=== PATIENT | male | born 1970 | race Caucasian/White ===

== ENCOUNTER → 2017-04-08 | Outpatient (CLI) | payer BC | END | disposition home or self-care (01) | LOC: C.RDSM 10:26 | PROVIDERS: ATTEND Orthopaedic Surgery Sports Medicine | DX: S49.92XA Unspecified injury of left shoulder and upper arm, initial encounter (principal); X58.XXXA Exposure to other specified factors, initial encounter ==

== ENCOUNTER → 2017-08-13 | Outpatient (CLI) | payer BC ==
[~2017-08-13] MED LIST: GADAVIST IV PRN
--- NOTE | 2017-08-13 11:51 | DIAGNOSTIC IMAGING REPORT ---
LEFT SHOULDER INJECTION UNDER FLUOROSCOPIC GUIDANCE CLINICAL HISTORY: Left shoulder pain. Injection for MR arthrogram. PROCEDURE: The risks, benefits, and alternatives to the procedure were discussed with the patient. Written informed consent was obtained. The patient was placed supine on the fluoroscopy table, and a left shoulder injection was performed under fluoroscopic guidance. The area was prepped and draped in the usual sterile fashion. The skin and soft tissues anesthetized with local 1% lidocaine. The left shoulder joint was accessed utilizing a 22-gauge needle, and approximately 6 cc of a mixture of gadolinium contrast, Optiray 300, and saline was injected into the joint space under fluoroscopic guidance. There was normal distention of the capsule. The procedure was well tolerated and without immediate complication. The patient was then transferred to MRI for MR arthrography. FLUOROSCOPY TIME: 22 seconds IMPRESSION: Successful injection of the left shoulder under fluoroscopic guidance. Electronically signed by: Inderjit Grubbs M.D. 08/13/2017 11:50 AM Dictated Date/Time: 08/13/2017 11:49 AM
--- NOTE | 2017-08-13 12:24 | DIAGNOSTIC IMAGING REPORT ---
L UPPER EXT JOINT WITH CLINICAL HISTORY: 47 years-old Male presenting with LEFT SHOULDER PAIN, snowboarding injury in March, acute pain and decreased range of motion, prior rotator cuff and labral repair. TECHNIQUE: Multisequence, multiplanar MR imaging of the left shoulder was performed after the administration of intra-articular contrast. IV contrast: None. COMPARISON: Plain radiograph from 04/08/2017. FINDINGS: Localizer images: Unremarkable. Bone marrow: Postsurgical changes of the proximal insertion of the subscapularis from prior repair. Multiple foci of susceptibility artifact relates to prior surgery. Minimal cystic change medial to the insertional fibers of the infraspinatus likely chronic changes related to impingement. No bony edema. Articular cartilage: Slight superior subluxation of the humeral head with articular cartilage thinning of the mid to superior portion of the glenoid and thinning of the inferior humeral head cartilage. Mild effacement of the acromiohumeral interval results from humeral head subluxation, which measures 7 mm. Labrum: Fluid signal intensity undermines the superior labrum at the level of the biceps labral complex and slightly posterior (series 4 image 8; series 7 image 11). This is greater and more irregular than what would be expected for a some labral recess. This may relate in part to postsurgical change/repair. Remainder of the glenoid labrum is intact. Biceps and triceps tendons: Long head of the biceps tendon intact, including the biceps-labral anchor despite the irregularity undermining the biceps labral complex. Long head of the biceps well seated in the intertubercular groove. Short head of the biceps tendon intact. Long head of the triceps tendon intact. Rotator cuff: Partial undersurface tear of the insertional fibers of the supraspinatus. Tendinosis of the supraspinatus also evident with possible laminar intrasubstance tear near the myotendinous junction. Increased signal intensity an thickening of the critical zone and insertional fibers of the infraspinatus suggesting tendinosis. Teres minor tendon intact. Thinning of the subscapularis tendon evident with suspected partial undersurface tear of the proximal fibers (series 4 image 11). Alternatively this may represent posttreatment change. The transverse ligament portion of the subscapularis tendon is intact. Acromioclavicular joint: Mild degenerative changes of the acromioclavicular joint. No effacement of the acromiohumeral interval. Shoulder joint effusion: Intra-articular contrast is evident. Trace fluid in the subacromial subdeltoid bursa. Muscle: Edema noted in the superior portion and more diffusely in the distal portion of the subscapularis muscle belly. Alternatively, this signal intensity may relate to injection technique. Remainder of the musculature demonstrates normal bulk and signal intensity. Superficial soft tissue: No subcutaneous edema. IMPRESSION: 1. Postsurgical changes of prior subscapularis repair. However, findings concerning for partial re-tear of the proximal fibers of the subscapularis tendon though the transverse ligament portion is intact. 2. Postsurgical changes versus tear of the superior labrum at the level of the biceps labral complex and slightly posterior from 12:00 to 11:00. No other evidence of labral tear. 3. Partial undersurface tear of the insertional fibers of the supraspinatus suspected along with tendinosis. 4. Tendinosis of the infraspinatus. 5. Mild articular cartilage thinning at the glenohumeral joint. Electronically signed by: Jason Karimi M.D. 08/13/2017 12:22 PM Dictated Date/Time: 08/13/2017 12:07 PM
== END | disposition home or self-care (01) ==
LOC: C.MRIBC 11:02
PROVIDERS: ATTEND Orthopaedic Surgery Sports Medicine
DX: S49.92XA Unspecified injury of left shoulder and upper arm, initial encounter (principal); X58.XXXA Exposure to other specified factors, initial encounter; M25.519 Pain in unspecified shoulder; M75.82 Other shoulder lesions, left shoulder